=== PATIENT | male | born 1940 | race Caucasian/White ===

== ENCOUNTER → 2021-09-07 | Outpatient (CLI) | payer MEDICARE, OTHER ==
--- NOTE | 2021-09-07 10:29 | RAD ---
EXAM: Veliz scale and color Doppler renal artery sonogram. HISTORY: Hypertension. TECHNIQUE: Veliz scale and color Doppler sonographic imaging of the renal arteries with spectral esther sis was performed. COMPARISON: None. FINDINGS: The kidneys are normal in size. There are tiny simple appearing renal cysts, the largest of which is seen on the left measuring 1.8 cm. There is no hydronephrosis. The renal veins and inferior vena cava are patent. There is incidental hepatic steatosis. The aorta is partially obscured due to bowel gas. There are normal peak systolic velocities within the renal arteries and normal renal artery to aorta velocity ratios. IMPRESSION: 1. Doppler findings consistent with less than 60 percent stenosis involving the renal arteries. 2. Multiple small simple renal cysts. 3. Incidental hepatic steatosis. Electronically signed by: Zoë Campos MD (09/07/2021 10:27 AM) [id number]
--- NOTE | 2021-09-07 10:44 | RAD ---
EXAM: Chest CT without intravenous contrast. HISTORY: Cough. TECHNIQUE: Computed tomographic images of the chest were obtained without contrast. Multiplanar refor matting was performed. *One or more of the following individualized dose reduction techniques were utilized for this examina tion: 1. Automated exposure control. 2. Adjustment of the mA and/or kV according to patient size. 3. Use of iterative reconstruction technique. COMPARISON: None. FINDINGS: The heart is normal in size. There is a small pericardial effusion. There is calcified athe rosclerotic plaque involving the coronary arteries, aorta and aortic great vessels. No pathologically enlarged mediastinal or hilar lymph node is seen. There is no pneumothorax or pleural effusion. Ther e is a 3 mm groundglass nodular opacity within the anterior right upper lobe (series 2, image 44). Th ere is a small cyst within the anterior right upper lobe. There is lingular, right middle lobe and bi lateral basilar linear and groundglass opacity, the appearance of which favors atelectasis or scarrin g. There is a calcified granuloma within the medial right lung base. There is no consolidation. There is a small nodule within the left upper quadrant likely due to a splenule. The spleen is absent . There is a peripherally calcified nodule within the superior left ventral peritoneum, likely due to fat necrosis. There is a complicated cystic lesion or fluid collection measuring 2.7 cm along the spivey perior aspect of the pancreatic neck. The pancreatic tail is absent. There are small hypodense lesion s within the left kidney measuring up to 1.9 cm, possibly due to cysts. There is degenerative change throughout the spine. There is no acute or suspicious osseous finding. IMPRESSION: 1. Bilateral mid and lower lung linear and groundglass opacities, the appearance of which favors atel ectasis or scarring. No consolidated infiltrate is seen. 2. 3 mm groundglass opacity within the right upper lobe. This is likely benign. Follow-up can be perf ormed in one year if there are risk factors for pulmonary neoplasm. 3. 2.7 cm corticated cyst or fluid collection along the superior aspect of the pancreatic neck. Given absence of the pancreatic body and tail, this may be due to a postoperative seroma, pseudocyst or cy stic neoplasm. This can be better characterized with a pancreatic protocol CT or MRI. 4. Multiple suspected left renal cyst. Renal sonography can be performed to confirm benignity. 5. Small pericardial effusion. Electronically signed by: Zoë Campos MD (09/07/2021 10:41 AM) [id number]
== END ==
LOC: US 09:41
PROVIDERS: ATTEND Family Medicine
DX: R91.8 Other nonspecific abnormal finding of lung field (principal); J90 Pleural effusion, not elsewhere classified; N28.1 Cyst of kidney, acquired; I25.10 Atherosclerotic heart disease of native coronary artery without angina pectoris; K86.2 Cyst of pancreas; R05.3 Chronic cough; I10 Essential (primary) hypertension
CPT/HCPCS: 71250; 93975